=== PATIENT | female | born 1950 | race African-American/Black ===

== ENCOUNTER 2019-02-09 16:53 | Observation (INO) ==
[2019-02-09] MEDS ORDERED: NITROGLYCERIN 2% OINT 1 INCH/GM PACK TOP STA (18:13)
[2019-02-09] MEDS ORDERED: MORPHINE 4 MG/1 ML VIAL IV STA (18:13)
[2019-02-09] MEDS ORDERED: ALUM/MAG/SIMETH/LIDO VISC 1:1 30 ML BOTTLE PO STA (18:13)
[2019-02-09] MEDS ORDERED: ONDANSETRON 4 MG/2 ML VIAL IV STA (18:13)
[2019-02-09 18:34] LABS: Basophils # 0.1 10*3/uL (0.0-0.2); Basophils % 0.6 % (0.0-0.8); Eosinophils # 0.2 10*3/uL (0.0-0.87); Hemoglobin 13.5 GM/DL (12.0-16.0); Immature Granulocytes % 2.1 %; Immature Granulocytes Absolute 0.49 #; Lymphocytes # 4.8 10*3/uL (1.4-4.0); Lymphocytes % 20.9 % (21.3-54.2); Mean Corpuscular HGB Conc 28.7 GM/DL (32-36); Mean Corpuscular Volume 82.2 FL (87-102); Mean Platelet Volume 9.8 FL (9.6-12.0); Monocytes % 6.5 % (1.7-12.7); NRBC # 0.03 10*3/uL; Neutrophils % 68.9 % (38.7-73.9); Platelet Count 665 T/CUMM (130-400); Red Blood Count 5.72 MC/CUMM (3.8-5.5); Red Cell Distribution Width 18.4 % (9.3-17.3); White Blood Count 22.9 T/CUMM (4-12)
[2019-02-09 18:37] LABS: Alanine Aminotransferase 14 U/L (13-56); Alkaline Phosphatase 142 U/L (45-117); Aspartate Amino Transferase 20 U/L (0-37); Bilirubin,Total < 0.39 MG/DL (0.2-1.0); Blood Urea Nitrogen 17 MG/DL (7-18); Calcium 10.3 MG/DL (8.5-10.1); Glucose 103 MG/DL (74-106); Osmolality,Calculated 276.7 MOS/KG (273-304)
[2019-02-09 18:49] LABS: Eosinophils 2 % (0-10); Lymphocytes 21 % (20-55); Platelet Estimate Normal; Segmented Neutrophils 70 % (50-85); Total Cells Counted 100
[2019-02-09 18:50] LABS: Ovalocytes Few
[2019-02-09 18:56] LABS: PT Patient Result 10.4 SECS
[2019-02-09 19:52] LABS: Apearance,Urine CLOUDY (Clear); Bilirubin,Urine Negative (Negative); Blood, Urine Negative (Negative); Glucose,Urine (UA) Negative (Negative); Hyaline Casts,Urine 115 /LPF (0-3); Ketones,Urine Negative (Negative); Mucus,Urine Many /LPF (Occasional); Nitrite,Urine Negative (Negative); Protein,Urine Negative; RBC,Urine 1 /HPF (0-4); Squamous Epithelial Cell,Urine Occasional /HPF (0-10); Urine Color Yellow (Yellow); Urine Specific Gravity 1.024 (1.001-1.035); Urine Urobilinogen < 2.0 EU/DL (0.2-1.0); WBC,Urine 1 /HPF (0-6)
[2019-02-09] MEDS ORDERED: MORPHINE 4 MG/1 ML VIAL IV PRN (20:45)
[2019-02-09] MEDS ORDERED: ONDANSETRON 4 MG/2 ML VIAL IV PRN (20:45)
[2019-02-09] MEDS ORDERED: ACETAMINOPHEN 325 MG TABLET PO PRN (20:45)
[2019-02-09] MEDS ORDERED: DOCUSATE SODIUM 100 MG CAPSULE PO PRN (20:45)
[2019-02-09] MEDS ORDERED: NITROGLYCERIN SL 0.4 MG TABLET SL PRN (20:53)
[2019-02-09] MEDS: POTASSIUM CHLORIDE 10 MEQ TABLET PO SCH (22:23)
[2019-02-09] MEDS: ENOXAPARIN 40 MG/0.4 ML SYRINGE SUBCUT SCH (22:23)
[2019-02-09] MEDS: FERROUS SULFATE 325 MG TABLET PO SCH (22:24)
[2019-02-09] MEDS: GABAPENTIN 300 MG CAPSULE PO SCH (22:30)
[2019-02-09] MEDS: SODIUM CHLORIDE 0.9% 1,000 ML IV SCH (23:33)
[2019-02-10 01:12] LABS: Basophils # 0.1 10*3/uL (0.0-0.2); Basophils % 0.3 % (0.0-0.8); Eosinophils # 0.1 10*3/uL (0.0-0.87); Eosinophils % 0.7 % (0.00-10.9); Hemoglobin 11.4 GM/DL (12.0-16.0); Immature Granulocytes % 1.3 %; Immature Granulocytes Absolute 0.24 #; Lymphocytes # 3.6 10*3/uL (1.4-4.0); Lymphocytes % 20.3 % (21.3-54.2); Mean Corpuscular HGB Conc 29.2 GM/DL (32-36); Mean Corpuscular Volume 80.9 FL (87-102); Mean Platelet Volume 9.2 FL (9.6-12.0); Monocytes % 6.7 % (1.7-12.7); Neutrophils % 70.7 % (38.7-73.9); Platelet Count 599 T/CUMM (130-400); Red Blood Count 4.82 MC/CUMM (3.8-5.5); Red Cell Distribution Width 17.5 % (9.3-17.3); White Blood Count 17.8 T/CUMM (4-12)
[2019-02-10 01:26] LABS: Calcium 9.7 MG/DL (8.5-10.1); Osmolality,Calculated 279.5 MOS/KG (273-304); Risk Ratio 3.03; Thyroid Stimulating Hormone 4.81 uIU/ml (0.358-3.74)
[2019-02-10] MEDS: LEVOTHYROXINE 88 MCG TABLET PO SCH (06:13)
[2019-02-10] MEDS: MONTELUKAST 10 MG TABLET PO SCH (08:50)
[2019-02-10] MEDS: GABAPENTIN 300 MG CAPSULE PO SCH ×2 (08:51→21:18)
[2019-02-10] MEDS: LOSARTAN 50 MG TABLET PO SCH (08:51)
[2019-02-10] MEDS: POTASSIUM CHLORIDE 10 MEQ TABLET PO SCH ×2 (08:51→17:00)
[2019-02-10] MEDS: PANTOPRAZOLE 40 MG TABLET PO SCH (08:51)
[2019-02-10] MEDS: FERROUS SULFATE 325 MG TABLET PO SCH ×2 (08:51→21:18)
[2019-02-10] MEDS: METOPROLOL SUCCINATE XL 50 MG TABLET PO SCH (08:51)
[2019-02-10] MEDS: SODIUM CHLORIDE 0.9% 1,000 ML IV SCH (13:03)
[2019-02-10] MEDS: ASPIRIN EC 81 MG TABLET PO SCH (13:08)
[2019-02-10] MEDS ORDERED: ATORVASTATIN 20 MG TABLET PO SCH (21:00)
[2019-02-10] MEDS: ENOXAPARIN 40 MG/0.4 ML SYRINGE SUBCUT SCH (21:18)
[2019-02-11 05:58] LABS: Basophils % 0.4 % (0.0-0.8); Eosinophils # 0.1 10*3/uL (0.0-0.87); Eosinophils % 1.2 % (0.00-10.9); Hematocrit 35.6 VOL% (35.7-47.0); Hemoglobin 10.4 GM/DL (12.0-16.0); Lymphocytes # 2.3 10*3/uL (1.4-4.0); Lymphocytes % 23.3 % (21.3-54.2); Mean Corpuscular HGB Conc 29.2 GM/DL (32-36); Mean Corpuscular Volume 81.3 FL (87-102); Mean Platelet Volume 9.2 FL (9.6-12.0); Monocytes % 6.6 % (1.7-12.7); Neutrophils % 67.5 % (38.7-73.9); Platelet Count 471 T/CUMM (130-400); Red Blood Count 4.38 MC/CUMM (3.8-5.5); Red Cell Distribution Width 17.2 % (9.3-17.3); White Blood Count 9.7 T/CUMM (4-12)
[2019-02-11 06:07] LABS: Calcium 8.7 MG/DL (8.5-10.1); Osmolality,Calculated 279.4 MOS/KG (273-304)
[2019-02-11] MEDS: LEVOTHYROXINE 88 MCG TABLET PO SCH (06:28)
[2019-02-11] MEDS: GABAPENTIN 300 MG CAPSULE PO SCH (09:04)
[2019-02-11] MEDS: SODIUM CHLORIDE 0.9% 1,000 ML IV SCH (09:26)
[2019-02-11] MEDS: PANTOPRAZOLE 40 MG TABLET PO SCH (09:27)
[2019-02-11] MEDS: MONTELUKAST 10 MG TABLET PO SCH (09:27)
[2019-02-11] MEDS: ASPIRIN EC 81 MG TABLET PO SCH (09:27)
[2019-02-11] MEDS: FERROUS SULFATE 325 MG TABLET PO SCH (09:27)
[2019-02-11] MEDS: METOPROLOL SUCCINATE XL 50 MG TABLET PO SCH (09:27)
[2019-02-11] MEDS: LOSARTAN 50 MG TABLET PO SCH (09:27)
[2019-02-11] MEDS: POTASSIUM CHLORIDE 10 MEQ TABLET PO SCH (09:27)
[2019-02-11] MEDS ORDERED: SODIUM CHLORIDE 0.9% 1,000 ML IV SCH (10:00)
[2019-02-11 12:28] VITALS: BP 158/80
== END 2019-02-11 13:20 | disposition home or self-care (01) ==
LOC: N.EDINP 16:53 → N.ED 16:53 → N.TELEN 20:23
PROVIDERS: ADMIT Internal Medicine; ATTEND Internal Medicine